=== PATIENT | female | born 1985 | race Caucasian/White ===

== ENCOUNTER 2025-04-28 12:01 | Emergency (ER) | payer OTHER, SELFPAY ==
--- OUTSIDE RECORDS SUMMARY | 2024-03-02 17:30 | XMS_ITS ---
Author Organization [facility] Address [address] [address] [place] [address] Care Team Providers Care Soft Metals Hand Engraver Name Role Phone zMigration, Provider Unavailable Unavailable REASON FOR VISIT Multum To Medispan Conversion Encounter Medications Medication SIG (Take, Route, Fr equency, Duration) Notes Start Date End Date Status Orilissa 150 MG Tablet 1 tab orally once a day Active Encounters Encounter Location Date Provider Diagnosis [facility] [address] [address] [place] [address] 03/02/2024 Provider zMigration Plan Of Treatment No Information Progress Notes * [place] CASTILLOB:1985 (40 yo F)Acc No.[id number]:03/02/2024 Patient: Dolores Mirandai Provider: :1985 A ge:38 Y S ex:Female Date:03/02/2024 Address:[address] [place], [place] [id number] Subjective: * Chief Complaints: * M ultum To Medispan Conversion Encounter * Medications: T akingOrilissa 150 MG Tablet 1 tab orally once a day Taking Orilissa 150 MG Tablet 1 tab orally once a day * Electronic signature of Prov ider zMigration on 04/28/2025 at 02:07 PM EDT Sign off status: Pending * Provider: Date: 0 03/02/2024 Generated for Robbin narayan/Donna/Selinaitting on: 04/28/2025 02:07 PM EDT
--- NOTE | ~2025-04-28 | XR_ITS ---
EXAMINATION: XR HAND 3 OR MORE VIEWS RIGHT HISTORY: pain, injury COMPARISON: There are no prior studies available for comparison. FINDINGS: Three views of the right hand are submitted. Osseous mineralization is normal. There is no fracture or dislocation. The joint spaces are preserved. The soft tissues are unremarkable. XR/XR hand RT min 3V IMPRESSION: Unremarkable examination of the right hand. Electronically signed by: Bennie Camacho MD 04/28/2025 12:35 PM EDT
[2025-04-28 12:08] VITALS: BP 115/74; PULSE 86; RESP 16; TEMP 36.6; O2SAT 97; BMI 19.6
--- NOTE | 2025-04-28 12:10 | ED_ITS ---
HPI - General Adult General Chief complaint: Extremity Injury, Upper Stated complaint: ? fx right index finger Time Seen by Provider: 04/28/25 12:44 Source: patient Mode of arrival: ambulatory Limitations: no limitations History of Present Illness ED Provider: Kadi Lopez PA-C HPI narrative: Patient is a 40 year old assigned female at with no reported medical history presenting to the emergency department today with a right index finger injury. Patient states that she was at work when she smashed her right index finger. Patient states that she is left handed. Patient states her last tetanus shot was 2022. Patient denies any other complaints at this time. Location: right (index finger) Relieving factors: none Exacerbating factors: none Associated symptoms: denies other symptoms Treatments prior to arrival: none Related Data Allergies Allergy/AdvReac Type Severity Reaction Status Date / Time Iodinated Contrast Media Allergy Hives Verified 04/28/25 12:10 (Contrast Dye) morphine Allergy Hives Verified 04/28/25 12:10 Review of Systems Constitutional: Constitutional: Reports as per HPI Eyes: Eyes: Reports as per HPI ENT: Reports as per HPI Cardiovascular: Cardiovascular: Reports as per HPI Respiratory: Respiratory: Reports as per HPI Gastrointestinal: Gastrointestinal: Reports as per HPI Genitourinary: Genitourinary: Reports as per HPI Musculoskeletal: Comments: right index finger pain Integumentary/Breasts: Skin/Breast: Reports as per HPI Neurologic: Reports as per HPI Psychiatric: Psychiatric: Reports as per HPI Endocrine: Endocrine: Reports as per HPI Hematologic/Lymphatic: Hematologic/Lymphatic: Reports as per HPI Allergic/Immunologic: Allergic/Immunologic: Reports as per HPI [facility] Past Medical History Attestation statement: The following information was validated with the patient. Source: old records reviewed and nursing notes reviewed Social History Social History Advance Directives: No Advance Directives Information Provided: No Do you have a plan to hurt others: No Plan Physical Exam ED Vital Signs: Vital Signs - 24 hr 04/28/25 12:08 04/28/25 12:56 Temperature 97.8 F 97.8 F Pulse Rate 86 86 Respiratory Rate 16 16 Blood Pressure 115/74 115/74 Pulse Oximetry 97 97 Oxygen Delivery Method Room Air BMI result Body Mass Index 19.6 Const General: cooperative, no acute distress, alert and awake Nutritional Appearance: well nourished Orientation/consciousness: patient oriented x3 HENMT Head: Yes normal to inspection and Yes atraumatic Ears: hearing grossly normal bilaterally and external ears normal General nose exam: Normal external nose present, no nasal discharge noted and no epistaxis Face and sinus: Yes normal facial exam, No abrasion and No laceration Mouth: Normal oral and palatal mucosa present, no drooling and no muffled voice Eyes General: appearance normal, both eyes and all related structures Periorbital: periorbital findings normal Eyelids: Yes eyelids normal Conjunctivae: conjunctivae normal Pupils: Equal, round and reactive pupils present EOM: EOMs intact bilaterally Neck Neck: Yes normal visual inspection and Yes full ROM Resp Effort & Inspection: normal respiratory effort and able to speak in complete sentences Neuro General: patient oriented x3, moves all extremities and CN's II-XI intact bilaterally Cranial nerves: Yes Equal, round and reactive pupils present Cognition (Neuro): normal cognition Extrem General: Yes normal to inspection, Yes full ROM and Yes capillary refill normal Psych Appearance: grossly normal Mental Status: mental status grossly normal Affect: normal affect Attitude: cooperative Thought process: Normal thought process present Thought content: Normal thought content present Insight: Good insight present (Psych) Course Course Course Narrative: Rapid medical examination performed in triage by Kadi Lopez PA-C. Patient is a 40 year old assigned female at presenting to the emergency department with a right index finger injury. Patient states she slammed her right index finger in a metal door. Last tetanus 2022. Detailed physical exam and review of systems are deferred to the job recruiter. Imaging ordered. Patient placed back in the waiting room pending room availability and results. Medical Decision Making Medical Decision Making MDM Narrative: Patient is a 40 year old assigned female at with no reported medical history presenting to the emergency department today with a right index finger injury. Patient's physical exam was unremarkable - no evidence of open / non- intact skin to the right index finger. PMS intact. Patient's right hand x-ray showed no acute process. I explained my physical exam findings as well as all test results to the patient. I answered all questions asked by the patient. I stressed the importance of the patient taking her medication as directed (either prescribed or as the over the counter packaging recommends). I stressed the importance of the patient following up with her primary care provider and given this was a work place injury - work connection. I stressed the importance of the patient returning to the emergency department immediately if her symptoms were to worsen or if she were to develop any numbness, tingling, inability to move her right index finger / hand, dizziness, shortness of breath, difficulty breathing, chest pain, blurry vision, loss of vision, nausea, vomiting, abdominal pain, fever, chills, back pain, or any other complaints. Patient verbalized agreement and understanding with this treatment plan and discharge. Differential Diagnosis Differential Diagnoses: The differential diagnosis associated with the presentation includes Right index finger fracture Right index finger contusion Right index finger pain Admission/Observation Consideration of admission/observation: Escalation of care including admission/observation considered Patient would have been admitted to the hospital had her work up had any findings where hospital admission was appropriate and her clinical presentation warranted hospital admission. Independent Interpretation I performed an independent interpretation of an: Plain X-Ray Interpretation: My interpretation is in agreement with the radiologist's impression of this imaging study. EXAMINATION: XR HAND 3 OR MORE VIEWS RIGHT HISTORY: pain, injury COMPARISON: There are no prior studies available for comparison. FINDINGS: Three views of the right hand are submitted. Osseous mineralization is normal. There is no fracture or dislocation. The joint spaces are preserved. The soft tissues are unremarkable. XR/XR hand RT min 3V IMPRESSION: Unremarkable examination of the right hand. Electronically signed by: Bennie Camacho MD 04/28/2025 12:35 PM EDT RP Dictated By: Bennie Camacho MD Signed By: Electronically signed by Bennie Camacho MD 04/28/25 3228 Radiology Impression Discussion of test interpretation with radiology: I have reviewed the radiologist's reading. Discharge Plan Discharge Clinical Impression: Contusion Patient Disposition: Home, Self-Care Instructions: Contusion in Adults (ED) Additional Instructions: Your x-ray showed no evidence of fracture / break. Given this was a work place injury - you should follow up with work connection. IF you are prescribed home medications and/or you are taking over the counter medications at home - it is very important you continue to do so as prescribed / directed unless told otherwise. Follow up with a primary care provider. Return to the emergency department immediately if your symptoms worsen or if you develop any numbness, tingling, dizziness, shortness of breath, difficulty breathing, chest pain, blurry vision, loss of vision, nausea, vomiting, abdominal pain, fever, chills, back pain, or any other complaints. If you do not have a primary care provider - call any of the below numbers to establish and follow up with a primary care provider. [facility] Primary Care ([place]) [phone] [place] [address], [address] [facility] Primary Care ([address] [place]) [phone] [place] [address], [address] [facility], [address] [facility] Primary Care ([address] [place]) [phone] [place] [address], [address] [facility], [address] [facility] Primary Care ([place]) [phone] [place] [address] [address] [facility], [address] [facility] Family Medicine [phone] [place] [address], [address] Please see the information below about our Patient Portal. If you are not yet enrolled in the [facility] Patient Portal, you will receive an enrollment email invitation following your visit to any [facility] setting. You may also self-enroll in the Patient Portal by visiting our website: [email or web address] The following information is required to access the Patient Portal: - Your [facility] Medical Record Number - Your personal home email address (must match what is in your electronic medical record, Registration staff can assist with this) - Name - Date of Capabilities of the Patient Portal: - Message some providers - View upcoming appointments - Access your health summary, medical history, and visit history - View current conditions and allergies - View procedure and lab results - View your medications, including guidelines, side effects, and precautions - Complete pre-appointment questionnaires requested by your provider - Ready summary reports of your office visits and procedures To access the Patient Portal Mobile [employer], follow these directions: - Search [employer] in the [employer] Store or [employer] Store - Download the Gino - Search for [facility] - Enter your login/password Referrals: Work Connection [Provider Group] Stand Alone Forms: Work/School Release Interventions: ED Discharge Assessment Last Done: 04/28/25 12:56 Discharge Date/Time: 04/28/25 12:56 Print Language: Luxembourgish
[2025-04-28 12:56] VITALS: BP 115/74; PULSE 86; RESP 16; TEMP 36.6; O2SAT 97
--- OUTSIDE RECORDS SUMMARY | 2025-04-28 14:07 | XMS_ITS | Patient Health Record ---
Author Organization [facility] Address [address] [address] [address] [place] [address] Care Team Providers Care Frame Repairer Name Role Phone Martha Perez Unavailable [phone] Allergies Allergen (clinical drug ingredient) Drug/Non Drug Allergy documented on EMR Reaction Allergy Type Onset Date Status morphine Morphine Sulfate hives Drug Allergy Active Reason For Referral No Information Medications Medication SIG (Take, Route, Fr equency, Duration) Notes Start Date End Date Status CeleXA 20 MG Tablet 1 tablet Orally Once a day Active Immunizations Vaccine Route Administration Date Status Comme nts Moderna COVID-19 Vaccine Unknown 04/05/2021 Administere d Social History Tobacco Use: Social History Observation Description Date Details (start date - stop date) Never Smoker NA - NA Social History Drugs/Alcohol: Social Info Question Answer Notes Alcohol Screen Did you have a drink containing alcohol in the past year? Yes How often did you have a drink containing alcohol in the past year? 2 to 3 times a week (3 points) Points 3 Interpretation Positive Tobacco Use: Social Info Question Answer Notes Tobacco Use/Smoking Are you a nonsmoker Plan Of Treatment Pending Test Test Name Order Date Ultrasound : Pelvic & Transvaginal 04/05 Insurance Providers Payer Name Payer Address Payer Phone Subscriber Number Group Number Insured Name Patient Relationship to Insured Coverage Start Date Coverage End Date [facility] Blue Card [address] [place], [place] [id number] [phone] [id number] Lydia Castillo Self - patient is the insured Medical (General) History Medical History History ICD Code Endometriosis cervical Cancer Ovarian cyst schistosomiasis hyperaldosteronism Surgical History Surgery Date(Month/Year) Ovarian cyst removal hysterectomy LEEP D&C Eptopic Gallbladder appendectomy
--- OUTSIDE RECORDS SUMMARY | 2025-04-28 14:07 | XMS_ITS ---
[facility] Name [facility] Results Test Name/Text Value Interpretation Date Range Source FREE T4 1.0 ng/dL Normal 09/16/2024 0.7 - 1.5 [facility] THYROID STIMULATING HORMONE 1.0 uIU/mL Normal 09/16/2024 0.35 - 4.94 [facility] WHITE BLOOD COUNT 5.1 k/mm3 Normal 09/16/2024 4 - 10 [facility] RED BLOOD COUNT 4.31 M/mm3 Normal 09/16/2024 3.9 - 5.1 [facility] MEAN CORPUSCULAR HEMOGLOBIN 32.3 pg Normal 09/16/2024 26.2 - 32.6 [facility] MEAN PLATELET VOLUME 10.8 fL Normal 09/16/2024 9 - 12.8 [facility] RED CELL DISTRIBUTION WIDTH 11.4 % Below low normal 09/16/2024 11.5 - 15.6 [facility] MEAN CORPUSCULAR VOLUME 95.1 fL Normal 09/16/2024 80 - 98 [facility] MEAN CORPUSCULAR HGB CONC 33.9 g/dL Normal 09/16/2024 32.1 - 34.5 [facility] HEMATOCRIT 41.0 % Normal 09/16/2024 35.7 - 43.7 [facility] NUCLEATED RED BLOOD CELL 0.0 K/mm3 Normal 09/16/2024 0 - 0.012 [facility] PLATELET COUNT 235.0 K/mm3 Normal 09/16/2024 130 - 385 [facility] NUCLEATED RED BLOOD CELL 0.0 % Normal 09/16/2024 0 - 0.2 [facility] HEMOGLOBIN 13.9 g/dL Normal 09/16/2024 12 - 14.8 [facility] ALBUMIN 4.8 g/dL Normal 09/16/2024 3.5 - 5 [facility] AST/SGOT 20.0 U/L Normal 09/16/2024 0 - 34 [facility] ALKALINE PHOSPHATASE 74.0 U/L Normal 09/16/2024 45 - 129 [facility] BUN/CREATININE RATIO 26.3 Normal 09/16/2024 [facility] CALCIUM 9.7 mg/dL Normal 09/16/2024 8.4 - 10.5 [facility] CARBON DIOXIDE (CO2) 24.0 mmol/L Normal 09/16/2024 20 - 3 1 [facility] CREATININE 0.8 mg/dL Normal 09/16/2024 0.5 - 1.3 [facility] ALBUMIN/GLOBULIN RATIO 1.8 Normal 09/16/2024 1 - 2. 2 [facility] GLUCOSE 81.0 mg/dL Normal 09/16/2024 65 - 100 [facility] ANION GAP 12.0 Above high normal 09/16/2024 3 - 11 [facility] BLOOD UREA NITROGEN 21.0 mg/dL Normal 09/16/2024 9 - 23 [facility] CHLORIDE 106.0 mmol/L Normal 09/16/2024 99 - 109 [facility] BILIRUBIN,TOTAL 0.8 mg/dL Normal 09/16/2024 0.2 - 1.2 [facility] POTASSIUM, SERUM 4.1 mmol/L Normal 09/16/2024 3.5 - 5.2 [facility] SODIUM 142.0 mmol/L Normal 09/16/2024 132 - 146 [facility] TOTAL PROTEIN 7.5 g/dL Normal 09/16/2024 6.4 - 8.3 [facility] M EST GLOMERULAR FILTRATION RATE > 60 Normal 09/16/2024 - [facility] ALT/SGPT 17.0 U/L Normal 09/16/2024 17 - 52 [facility] Encounters Encounter Type Encounter Reason Primary Diagnosis Location Date Emergency Contact with and (suspected) exposure to other hazardous substances Contact with and (suspected) exposure to other hazardous substances [facility] 02/07/[address] [facility] Ambulatory PALPITATIONS VENTRICULAR MARIO ALBERTO ATURE DEPOLARIZATION [facility] 10/24/2024 Ambulatory R00.2 / R55 / R07.9 CHEST PAIN, UNSPECIFIED [facility] 09/23/2024 Ambulatory R00.2 PALPITATIONS [facility]) 09/16/2024 Ambulatory Z01.419 Z11.51 ENCNTR FOR INSPECTOR PENETRANT E XAM (GENERAL) (ROUTINE) W/O ABN FINDINGS [facility]) 04/03/2023 Ambulatory E34.9 Z11.51 Z01.419 ENDOCRINE D ISORDER, UNSPECIFIED [facility]) 06/20/2022 Care Team Organization Name Specialty Phone Email Start Date End Da cl [facility] PCP Casting Inspector 02/07/2025 03/08/[address] [facility] 02/07/202503/08 [facility] NO PCP Primary Care 02/07/2025 [facility] 11/09/2024 [employer] [facility] 05/15/2024 [place] [employer] [facility] 01/02/2024 [facility]) PHYSICIAN,NO Primary Care 09/24/2023 02/04/2025 [facility]) KNOWN PROVIDER Primary Care 10/10/2022 02/05/20 [facility] 07/06/2022 [facility]) PHYSICIAN NO Primary Care 06/29/2022 02/04/2025 [facility]) NO PHYSICIAN Primary Care 06/20/2022 06/20/2022 [facility]) PROVIDER KNOWN Primary Care 03/16/2022 03/16/20 [employer] NO PCP Primary Care 06/20/2018 06/20/2018 [employer] [facility] Primary Care
--- OUTSIDE RECORDS SUMMARY | 2025-04-28 14:07 | XMS_ITS | Clinical Summary ---
Author Organization [facility] Address [address] [place] [address] Care Team Providers Care Auxiliary Power Equipment Operator Name Role Phone Pj Ash MD Unavailable [phone] Allergies Active Allergy Reactions Criticality Noted Date Comments Adhesives/Tape Other (See Comments) 06/18/2018 lyon Oxycodone-Acetaminop hen Nausea And Vomiting Low 02/18/2014 SEVERE NAUSEA + VOMITING SEVERE NAUSEA + VOMITING Medications losartan-hydrochl orothiazide (HYZAAR) 50-12.5 MG per tablet Take 1 tablet by mouth daily. Active diclofenac (VOLTAREN) 1 % gelIndications:St rain of left shoulder, subsequent encounter Apply topically 4 (four) times a day. Use dosing card to measure dose. Apply to entire affect area. 1 Tube 8 Active ibuprofen (MOTRIN) 800 mg tabletIndications :Strain of left shoulder, subsequent encounter,Strain of lumbar region, subsequent encounter Take 1 tablet (800 mg total) by mouth 4 times daily (every 6 hours) as needed for mild pain. 30 tablet 8 Active norethindrone (AYGESTIN) 5 MG tablet Take 5 mg by mouth daily. 0 Active albuterol (ProAir HFA) 108 (90 Base) MCG/ACT inhalerIndication s:Mild intermittent asthma without complication Inhale 1-2 puffs every 4 (four) hours as needed for wheezing. 1 Inhaler 3 0 Active BREO ELLIPTA 100-25 MCG/INH inhalerIndication s:Mild intermittent asthma without complication TAKE 1 PUFF BY MOUTH EVERY DAY 60 puff 0 Active OMEprazole (PriLOSEC) 20 MG capsuleIndication s:Pain of upper abdomen,Gastroeso phageal reflux disease without esophagitis Take 1 capsule (20 mg total) by mouth every morning before breakfast. 30 capsule 1 Active sodium-potassium- magnesium sulfates (Suprep Bowel Prep Kit) 17.5-3.13-1.6 GM/177ML Solution solutionIndicatio ns:Diarrhea, unspecified type As directed 177 mL 1 Active Sod Picosulfate-Mag Ox-Cit Acd 10-3.5-12 MG-GM -GM/160ML SolutionIndicatio ns:Diarrhea, unspecified type Take 2 Bottles by mouth once. Take 2 bottles as directed by provider, along with clear liquids. 2 Bottle 1 Active cholestyramine resin (QUESTRAN) 4 g packetIndications :Right upper quadrant abdominal pain,Diarrhea, unspecified type Take 1 packet (4 g total) by mouth 2 (two) times a day with meals. Add to liquid and stir until completely mixed. 60 packet 1 1 Active ALPRAZolam (XANAX) 0.25 MG tabletIndications :PTSD (post-traumatic stress disorder) TAKE ONE TABLET THREE TIMES DAILY (every EIGHT hours) as needed FOR anxiety 30 tablet 1 1 Active citalopram (CeleXA) 20 MG tabletIndications :PTSD (post-traumatic stress disorder) Take 0.5 tablets (10 mg total) by mouth daily. 90 tablet 1 Active ondansetron (ZOFRAN) 4 MG tabletIndications :Nausea Take 1 tablet (4 mg total) by mouth 3 times daily (every 8 hours) as needed for nausea or vomiting. 30 tablet 1 1 Active Active Problems Problem Noted Date Diagnosed Date Right upper quadrant abdominal pain 10/23/2020 Assessment & Plan (11/20/2020 3:33 PM EDT): Patient was in [facility] had an ultrasound there which revealed the possibility of a cyst related to the bile duct she continues to have pain at this point in time omeprazole does not seem to be helping her I will discontinue it she has been tried on Bentyl which makes her sleepy has not really given her much help. 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 Sound related to food. She did speak to the surgeon performed a cholecystectomy and delayed rehab center body dysfunction refer to [facility] no other evaluation. She does say the pain feels similar to her prior gallbladder pain she also takes a fair amount of nonsteroidal anti-inflammatory drugs at this time laboratory studies liver function tests lipase were done which were all normal we will proceed with an upper endoscopy depending upon the findings further imaging with either ultrasound to assess the size of the duct or an MRCP may be warranted. Diarrhea 10/23/2020 Assessment & Plan (11/20/2020 3:39 PM EDT): See under right upper quadrant abdominal pain diarrhea continues colonoscopy biopsies unremarkable for etiologic cause. We will start Questran for symptomatic treatment possible treatment of choleretic diarrhea will obtain stool for C&S and C&S O&P and Giardia were done Assessment & Plan (10/23/2020 3:03 PM EST): Patient has a history of diarrhea as her cholecystectomy however is continued for 3 years. The vast majority of postcholecystectomy diarrhea resolves within 3 to 4 months of the cholecystectomy. I have seen patients who have choleretic diarrhea often for years afterwards. At this point in time given the complaint of chronic diarrhea will schedule him for colonoscopy with stool aspirate and biopsies for further evaluation if this is all unremarkable then would consider treatment with Questran History of hysterectomy 10/09/2020 History of cholecystectomy 10/09/2020 Mild intermittent asthma without complication PTSD (post-traumatic stress disorder) 01/03/2020 Hypertension 12/20/2019 Endometriosis 10/23/2017 Benign essential hypertension 03/28/2011 Resolved Problems Problem Noted Date Diagnosed Date Resolved Date Infection due to 2019-nCoV 01/03/2020 0 11/16/2023 Immunizations Immunization Administration Dates Next Due Influenza (AFLURIA/FLUZONE) Inactivated/Split Quadrivalent with Preservative IM 06/18/2018(Deferred: Patient decision) Influenza, Unspecified 09/17/2019 Family History Medical History Relation Name Comments Asthma Mother Cancer Paternal Grandfather Lung cancer Paternal Grandmother Relation Name Status Comments Father Alive Mother Alive Paternal Grandfather Paternal Grandmother Social History Tobacco Use Types Packs/Day Years Used Date Smoking Tobacco: Never Smokeless Tobacco: Never Alcohol Use Standard Drinks/Week Comments Yes 0 (1 standard drink = 0.6 oz pur e alcohol) social AUDIT-C Answer Date Recorded Q1: How often do you have a drink containing alc ohol? 2-3 times a week 10/23/2020 Q2: How many drinks containi ng alcohol do you have on a typical day when you are drinking? Not asked 10/23/2020 Q3: How often do you have si x or more drinks on one occasion? 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 Not on file Not on file Last Filed Vital Signs Vital Sign Reading Time Taken Comments Blood Pressure 102/74 11/20/2020 3:10 PM EDT Pulse 66 10/23/2020 2:37 PM EST Temperature 36.8 C (98.2 F) 06/20/2018 7:18 PM EDT Respiratory Rate 20 10/09/2020 1:35 PM EST Oxygen Saturation 99% 10/09/2020 1:35 PM EST Inhaled Oxygen Concentration - - Weight 57.2 kg (126 lb) 11/20/2020 3:10 PM EDT Height 162.6 cm (5' 4 ) 06/20/2018 7:18 PM EDT Body Mass Index 21.63 06/20/2018 7:18 PM EDT Plan of Treatment Health Maintenance Due Date Last Done Comments Hepatitis C Virus Screening 1987 HIV Screening 2000 DTaP/Tdap/Td Vaccines (1 - Tdap) 2006 Hepatitis B Vaccines (1 of 3 - 19+ 3-dose series) 2006 Pneumococcal Vaccine: Pediat rosalinda (0-5 Years) and At-Risk Patients (6 to 49 Years) (1 of 2 - PCV) 2006 HPV Vaccines (1 - 3-dose SCDM series) 2014 Pap Smear (Ages 21-65) 11/02/2022 0 (Previously Completed) COVID-19 Vaccine ( - 2023- season) 2024, 09/01/2020 Influenza Vaccine 04/04/2025 09/10/2020, 09/17/2019 Insurance [facility] Care Teams Auxiliary Power Equipment Operator Relationship Specialty Start Date End Date Pj Ash MD [address] [address] [place] [address] Gastroenterology 05/15/24
--- OUTSIDE RECORDS SUMMARY | 2025-04-28 14:07 | XMS_ITS | Patient Health Record ---
Author Organization [facility], Address [address] [place] [address] Reason For Referral No Information Medications Medication SIG (Take, Route, Frequency, Duration) Notes Start Date End Date Status ProAir HFA 108 (90 Base) MCG/ACT 1 puff as needed Inhalation every 4 hrs; Duration: 30 days 12/17/2019 Active Plan Of Treatment No Information Insurance Providers Payer Name Payer Address Payer Phone Subscriber Number Group Number Insured Name Patient Relationship to Insured Coverage Start Date Coverage End Date [facility] [address] [place] [phone] [id number] REED GALDAMEZ Self - patient is the insured
--- OUTSIDE RECORDS SUMMARY | 2025-04-28 14:07 | XMS_ITS | Clinical Summary ---
Author Organization [facility] Address [address] [place] [address] Care Team Providers Care Supply Cataloguer Name Role Phone Pcp, No MD Primary Care Provider Unavailabl e Allergies Active Allergy Reactions Criticality Noted Date Comments Adhesive 07/17/2015 Oxycodone-Acetaminoph en Nausea And Vomiting Low 02/18/2014 SEVERE NAUSEA + VOMITING Medications losartan-hydroc hlorothiazide (HYZAAR) 50-12.5 mg per tablet Take by mouth daily. Active L norgest/e.estra diol-e.estrad (SEASONIQUE) 0.15 mg-30 mcg (84)/10 mcg (7) tablets,dose pack,3 month Take by mouth daily. 06/24/2016 Active ORILISSA 150 mg tablet take ONCE DAILY DIRECTED 4 06/07/2019 Active Social History Tobacco Use Types Packs/Day Years Used Date Smoking Tobacco: Never Smokeless Tobacco: Never Alcohol Use Standard Drinks/Week Comments No 0 (1 standard drink = 0.6 oz pur e alcohol) Comments Unknown Sex and Gender Information Value Date Recorded Sex Assigned at Not on file Legal Sex Female 11:53 AM EST Gender Identity Not on file Sexual Orientation Not on file Last Filed Vital Signs Vital Sign Reading Time Taken Comments Blood Pressure 122/79 06/13/2019 3:02 PM EDT Pulse 91 06/13/2019 3:02 PM EDT Temperature 36.7 C (98 F) 07/20/2018 10:18 PM EST Respiratory Rate 21 07/20/2018 10:18 PM EST Oxygen Saturation 97% 07/20/2018 10:18 PM EST Inhaled Oxygen Concentration - - Weight 60.8 kg (134 lb) 06/13/2019 3:02 PM EDT Height 162.6 cm (5' 4 ) 06/13/2019 3:02 PM EDT Body Mass Index 23 06/13/2019 3:02 PM EDT Plan of Treatment Health Maintenance Due Date Last Done Comments HIV Screening 1987 DTaP,Tdap,and Td Vaccines (1 - Tdap) 2005 Hepatitis B Vaccines (1 of 3 - 19+ 3-dose series) 2006 Pap Smear 2008 Cervical Cancer Screening 2017 HPV/Cotest 2017 COVID-19 Vaccine (1 - 2023-2 5 season) 2024 Influenza Vaccine (#1) 2025 0, 09/17/2019 Zoster Vaccines (1 of 2) 2037 HPV Vaccines Aged Out No longer eligi ble based on patient's age to complete this topic Hepatitis A Vaccines Aged Out No long er eligible based on patient's age to complete this topic MMR Vaccines Aged Out No longer eligi ble based on patient's age to complete this topic Meningococcal Vaccine Aged Out No arminda med eligible based on patient's age to complete this topic Pneumococcal Vaccine: Pediatrics (0 to 5 Years) and At-Risk Patients (6 to 49 Years) Aged Out No longer eligible b ased on patient's age to complete this topic Insurance MEDICAID [employer] Care Teams Supply Cataloguer Relationship Specialty Start Date End Date PcpNadege MD [address] [place] [address] PCP - General 11/01/17
--- OUTSIDE RECORDS SUMMARY | 2025-04-28 14:07 | XMS_ITS | Encounter Summary ---
Author Organization [facility] Address [address] [place] [address] Care Team Providers Care Director Safety Council Name Role Phone Pcp, Does Not Have A Primary Care Provider Unava ilable Encounter Details Date Type Department Care Team (Latest Contact Info) Description 02/14/2014 Transcribed Orders [address] [place] [address] Julio Maurice MD [address] [place] [id number] Deviated nasal septum (Primary Dx); Hypertrophy of nasal turbinates; Chronic ethmoidal sinusitis; Chronic maxillary sinusitis; Chronic frontal sinusitis; Chronic sphenoidal sinusitis; Chronic tonsillitis Social History Tobacco Use Types Packs/Day Years Used Date Smoking Tobacco: Never Assessed Comments Unknown Sex and Gender Information Value Date Recorded Sex Assigned at Not on file Legal Sex Female 6:17 AM EST Gender Identity Not on file Sexual Orientation Not on file documented as of this encounter Plan of Treatment Scheduled Orders Name Type Priority Associated Diagnoses Orde r Schedule Comprehensive metabolic panel Lab Routine Deviated nasal septum Hypertrophy of nasal turbinates Chronic ethmoidal sinusitis Chronic maxillary sinusitis Chronic frontal sinusitis Chronic sphenoidal sinusitis Chronic tonsillitis 1 Occurrences starting 02/14/2014 until 08/16/2014 documented as of this encounter Results * Electrolyte panel (02/14/2014 1:15 PM EDT) Sodium 139 136 - 145 mMol/L [facility] Potassium 4.2 3.5 - 5.1 mMol/L [facility] Chloride 104 95 - 115 mMol/L [facility] CO2 26 21 - 32 mMol/L [facility] Anion Gap 9.0 5 - 15 [facility] Blood specimen (specimen) 02/14/2014 1:15 PM EDT Narrative [facility] - 02/14/2014 2:53 PM EDT Perf by: [facility] , [address] [place] [address] (CLIA# [id number], [id number], [place] [id number]) us Julio Maurice MD FACS LAB BLOOD ORDERABLES Fi nal Result [address] [address] * PT/INR and PTT ( L Y) (02/14/2014 1:15 PM EDT) Prothrombin Time 10.4 10.0 - 12.6 seconds [facility] INR 1.0 0.9 - 1.1 [facility] Comment: Monitor coumadin with INR ONLY, not PT. THERAPEUTIC RANGE: 2.0 - 3.0 *Mechanical prosthetic valves and prevention of recurring M.I. refer to Therapeutic range of 2.5 - 3.5. PTT 24.8 22.0 - 31.0 seconds [facility] Comment:THERAPEUTIC RANGE: 4 6.8 - 71.5 seconds Blood specimen (specimen) 02/14/2014 1:15 PM EDT Narrative [facility] - 02/14/2014 1:34 PM EDT ORDER COMMENTS: Patient anticoagulant status:->No anticoagulants Perf by: [facility] , [address] [place] [address] (CLIA# [id number], [id number], [place] PFI:[id number]) us Julio Maurice MD FACS LAB BLOOD ORDERABLES Fi nal Result [facility] [address] [place] [address] * (ABNORMAL) CBC and differential (02/14/2014 1:15 PM EDT) WBC 13.2(H) 3.8 - 10.6 Thou/uL [facility] RBC 4.26 4.20 - 5.40 Mill/uL [facility] Hemoglobin 13.1 11.9 - 16.0 g/dL [facility] Hematocrit 39.1 36.0 - 48.0 % [facility] MCV 91.8 80.0 - 99.0 fL [facility] MCH 30.8 25.7 - 31.0 pg [facility] MCHC 33.5 32.0 - 36.0 g/dL [facility] Red Cell Distribution Width SD 42.5 35.1 - 46.3 fL [facility] RDW 12.7 11.3 - 14.5 % [facility] Platelets 267 140 - 446 Thou/uL [facility] MPV 10.9 9.8 - 12.3 fL [facility] Nucleated RBC (Automated) 0.0 0.0 - 0.2 [facility] Segs Relative 65.0 38.0 - 74.0 % [facility] Lymphocytes Relative 24.1 14.0 - 43.0 % [facility] Monocytes Manual 5.4 0.0 - 14.0 % [facility] Eosinophils Manual 4.5 0.0 - 6.0 % [facility] Basophils Manual 1.0 0.0 - 2.0 % [facility] Immature Granulocytes 0.2 0.0 - 2.0 % [facility] ANC (Abs Neutrophil Count) 8.61(H) 1.80 - 7.28 Thou/uL [facility] Blood specimen (specimen) ARM NEC / Unknown 02/14/2014 1:15 PM EDT Narrative [facility] - 02/14/2014 2:38 PM EDT Perf by: [facility] , [address] [place] [address] (CLIA# [id number], [id number], [place] PFI:[id number]) us Julio Maurice MD FACS LAB BLOOD ORDERABLES Fi nal Result [facility] [address] [place] [phone] documented in this encounter Visit Diagnoses Diagnosis Deviated nasal septum- Primary Hypertrophy of nasal turbinates Chronic ethmoidal sinusitis Chronic maxillary sinusitis Chronic frontal sinusitis Chronic sphenoidal sinusitis Chronic tonsillitis Deviated nasal septum Hypertrophy of nasal turbinates Chronic ethmoidal sinusitis Chronic maxillary sinusitis Chronic frontal sinusitis Chronic sphenoidal sinusitis Chronic tonsillitis documented in this encounter Care Teams Director Safety Council Relationship Specialty Start Date End Date Pcp, Does Not Have A PCP - General 11/09/17 11/10/17 documented as of this encounter
--- OUTSIDE RECORDS SUMMARY | 2025-04-28 14:08 | XMS_ITS | Patient Health Record ---
Author Organization [facility] Address [address] [place] [id number] Care Team Providers Care Processing Lead Name Role Phone Migration, Provider Unavailable Unavailable Reason For Referral No Information Medications Medication SIG (Take, Route, Frequency, Duration) Notes Start Date End Date Status Seasonique *Reorder from ltum for eRx and Interaction Alerts* 12/23/2011 Active CeleXA *Pick strength-f orm from [facility] for eRX* 12/23/2011 Active Social History Social History Additional Details Category Social Info Options Details Social History Migrated Social History Al cohol intake : , Smoking Status : Former smoker Pt smoked approx 5 cigaretted per day for 2 yrs and quit in 2009 Encounters Encounter Location Date Provider Diagnosis [facility] [address] [place] [phone] 05/05/2024 Provider Migration [facility] [address] [facility] [address] [address] [place] [phone] 05/04/2024 Provider Migration Plan Of Treatment No Information
--- OUTSIDE RECORDS SUMMARY | 2025-04-28 14:08 | XMS_ITS | Patient Health Record ---
Author Organization [facility] Address [address] [place] [id number] Care Team Providers Care Road Mender Name Role Phone Joseluis Schuler Unavailable [phone] Allergies No Known Allergies Reason For Referral No Information Medications Medication SIG (Take, Route, Frequency, Duration) Notes Start Date End Date Status Singulair 10 MG 1 ORAL QD; Duration: -3 04/27/2011 Active CeleXA 40 MG 1 ORAL QHS; Duration : -3 04/27/2011 Active Amoxicillin 500MG 1 ORAL TID; Duration : -3 *Pick strength-form from [facility] for eRX* 04/25/2012 Active Problems Problem Type SNOMED Code ICD Code Onset Dates Problem Status W/U Status Risk Notes Problem Harmful pattern of use of tobacco (disorder) (3047716365) Personal history of tobacco use, presenting hazards to health (V15.82) 04/27/2011 Active confirmed Problem Screening for alcoholism (V79.1) 05/13/2013 Active confirmed Plan Of Treatment No Information Insurance Providers Payer Name Payer Address Payer Phone Subscriber Number Group Number Insured Name Patient Relationship to Insured Coverage Start Date [facility]age End Date [facility] [address] [place], [place] [id number] Lydia Castillo Self - patient is the insured
--- OUTSIDE RECORDS SUMMARY | 2025-04-28 14:08 | XMS_ITS | Clinical Summary ---
Author Organization [facility] Address [address] [place] [address] Care Team Providers Care Insulation Professional Name Role Phone Unavailable Primary Care Provider Unavailabl e Allergies Active Allergy Reactions Criticality Noted Date Comments Morphine 07/02/2019 Medications Medication Sig Dispensed Refills Start Date End Date Status losartan 50 MG TABS 1 tablet, hydroCHLOROthiazide 12.5 MG CAPS 1 capsule Take 1 tablet by mouth daily. 0 Active Elagolix Sodium (ORILISSA) 150 MG TABS Take by mouth. 0 Active Social History Tobacco Use Types Packs/Day Years Used Date Smoking Tobacco: Former Smokeless Tobacco: Never Alcohol Use Standard Drinks/Week Comments Yes 0 (1 standard drink = 0.6 oz pur e alcohol) Sex and Gender Information Value Date Recorded Sex Assigned at Female 07/02/2019 10:21 AM EDT Gender Identity Not on file Sexual Orientation Not on file Last Filed Vital Signs Vital Sign Reading Time Taken Comments Blood Pressure 110/75 07/02/2019 12:47 PM EDT Pulse 97 07/02/2019 12:47 PM EDT Temperature 36.4 C (97.5 F) 07/02/2019 12:47 PM EDT Respiratory Rate 16 07/02/2019 12:47 PM EDT Oxygen Saturation 100% 07/02/2019 12:47 PM EDT Inhaled Oxygen Concentration - - Weight 58.5 kg (129 lb) 07/02/2019 9:43 AM EDT Height 162.6 cm (5' 4 ) 07/02/2019 9:43 AM EDT Body Mass Index 22.14 07/02/2019 9:43 AM EDT Plan of Treatment Health Maintenance Due Date Last Done Comments Hepatitis B Vaccines (1 of 3 - 3-dose series) 1987 Hepatitis C Screening 1987 COVID-19 Vaccine (#1) 1987 Depression Screening 1999 Preventative Health Evaluation 2005 DTap / Tdap / Td (1 - Tdap) 2006 Cervical Cancer Screening (P ap Smear) 2008 Influenza Vaccine (#1) 2025 Pneumococcal Vaccine Aged Out No long er eligible based on patient's age to complete this topic RSV Ped < 20 months Aged Out No longe r eligible based on patient's age to complete this topic Lydia Castillo Workers Comp Self [address] [place] [address]
--- OUTSIDE RECORDS SUMMARY | 2025-04-28 14:08 | XMS_ITS | Patient Health Record ---
Author Organization [email or web address] Address [address] [address] [place] [address] Care Team Providers Care Captain'S Assistant Name Role Phone Harini KASPER, Joseluis Primary Care Provider Unavailab Scotty Cormier Unavailable [phone] Bing Mcclellan MD Unavailable Unavailable Reason For Referral No Information Medications Medication SIG (Take, Route, Frequency, Duration) Notes Start Date End Date Status Seasonique Active CeleXA Active Dilaudid taking currently due to pain Active Problems Problem Type SNOMED Code ICD Code Onset Dates Problem Status W/U Status Risk Notes Problem Right upper quadrant pain (910175709) Abdominal pain, right upper quadrant (789.01) Active confirmed Plan Of Treatment No Information Insurance Providers Payer Name Payer Address Payer Phone Subscriber Number Group Number Insured Name Patient Relationship to Insured Coverage Start Date Coverage End Date [employer] [address] [place] [address] [id number] JAYDEN GALDAMEZ ARR Self - patient is the insured Medical (General) History Surgical History Surgery Date(Month/Year) LEEP T&A Sinusitis Appendectomy Left adrenal adenoma resection Right ovarian cystectomy Hospitalization History Reason Date(Month/Year) RUQ u/s - Right renal cyst 05/07/13 MRI thoracic spine - bulging annulus at T6/T7 with patent foramen and canal 05/08/13 [facility] - Normal EF - 48% 05/21/13 Schistosoma IgG neg, strongyloides IgG n eg 09/28/13 EGD - Small hiatal hernia, m ild NERD. Bxs neg for h pylori, sprue and Chamorro's 10/02/13 GES - normal 10/04/13 CT A/P - Constipation 10/10/14 CMP/TSH normal, lipase 45 10/10/14 CBC normal, ESR 13, vitamin B12 345
--- OUTSIDE RECORDS SUMMARY | 2025-04-28 14:08 | XMS_ITS | Clinical Summary ---
Author Organization [facility] Address [address] [place] [address] Care Team Providers Care Wood Web Weaving Machine Operator Name Role Phone Unavailable Primary Care Provider Unavailabl e Surgical History Surgery Date Site/Laterality Comments OTHER SURGICAL HISTORY PROCEDURE:partial ovarian OTHER SURGICAL HISTORY PROCEDURE:right ankle Medical History Medical History Date Comments Hypertension DX:Hypertension Endometriosis DX:Endometriosis Adenomyosis DX:Adenomyosis Social History Tobacco Use Types Packs/Day Years Used Date Smoking Tobacco: Former Smokeless Tobacco: Never Alcohol Use Standard Drinks/Week Comments Yes 0 (1 standard drink = 0.6 oz pur e alcohol) Comments Unknown Sex and Gender Information Value Date Recorded Sex Assigned at Not on file Legal Sex Female 6:53 AM EST Gender Identity Not on file Sexual Orientation Not on file Obstetrics History Plan of Treatment Health Maintenance Due Date Last Done Comments DTaP,Tdap,and Td Vaccines (1 - Tdap) 2006 Hepatitis B Vaccines (1 of 3 - 19+ 3-dose series) 2006 Cervical Cancer Screening: P ap Smear 2008 COVID-19 Vaccine ( - 2023-2 5 season) 2024 Depression Screening 09/04/2024 Influenza Vaccine (#1) 2025 HIB Vaccines Aged Out No longer eligi ble based on patient's age to complete this topic HPV Vaccines Aged Out No longer eligi ble based on patient's age to complete this topic Hepatitis A Vaccines Aged Out No long er eligible based on patient's age to complete this topic IPV Vaccines Aged Out No longer eligi ble based on patient's age to complete this topic MMR Vaccines Aged Out No longer eligi ble based on patient's age to complete this topic Meningococcal ACWY Vaccine Aged Out N o longer eligible based on patient's age to complete this topic Meningococcal B Vaccine Aged Out No l onger eligible based on patient's age to complete this topic Pneumococcal Vaccine: Pediat rics (0 to 5 Years) and At-Risk Patients (6 to 49 Years) Aged Out No longer eligible b ased on patient's age to complete this topic RSV Immunization Patients Un víctor 20 months Aged Out No longer eligible b ased on patient's age to complete this topic Varicella Vaccines Aged Out No longer eligible based on patient's age to complete this topic
--- OUTSIDE RECORDS SUMMARY | 2025-04-28 14:08 | XMS_ITS | Clinical Summary ---
Author Organization [facility] [address] [id number] Care Team Providers Care Dish Cloth Inspector Name Role Phone Pcp, No Primary Care Provider Unavailabl e Allergies Active Allergy Reactions Criticality Noted Date Comments Morphine Other Reaction(s): hives Medications citalopram 20 mg tablet , Orally 10/02/2024 Active Encounters Date Type Department Care Team Description 02/07/2025 7:35 AM EDT - 02/07/2025 8:28 AM EDT Emergency Emergency [address] [place] [id number] Exposure to hazardous substance (Primary Dx) Discharge Disposition: DISCHARGED TO HOME OR SELF CARE (ROUTINE DISCHARGE) 02/07/2025 Travel from Last 3 Months Social History Tobacco Use Types Packs/Day Years Used Date Smoking Tobacco: Never Assessed Comments Unknown Sex and Gender Information Value Date Recorded Sex Assigned at Not on file Legal Sex Female 6:52 PM EST Gender Identity Not on file Sexual Orientation Not on file Last Filed Vital Signs Vital Sign Reading Time Taken Comments Blood Pressure 140/101 02/07/2025 7:45 AM EDT Pulse 84 02/07/2025 7:45 AM EDT Temperature 36.9 C (98.4 F) 02/07/2025 7:45 AM EDT Respiratory Rate 19 02/07/2025 7:45 AM EDT Oxygen Saturation 97% 02/07/2025 7:45 AM EDT Inhaled Oxygen Concentration - - Weight 61.7 kg (136 lb) 02/07/2025 7:51 AM EDT Height 162.6 cm (5' 4 ) 02/07/2025 7:51 AM EDT Body Mass Index 23.34 02/07/2025 7:51 AM EDT Plan of Treatment Health Maintenance Due Date Last Done Comments HIV Screening 1987 Lipid Panel 1987 Varicella Vaccines (1 of 2 - 13+ 2-dose series) 2000 Hepatitis C Screening 2005 Hepatitis B Vaccines (1 of 3 - 19+ 3-dose series) 2006 Pneumococcal Vaccine: Pediatrics (0 to 5 Years) and At-Risk Patients (6 to 64 Years) (1 of 2 - PCV) 2006 Influenza Vaccine (#1) 2025 09/17/2019, 2013 Pap Smear 04/08/2026 04/08/2023, 03/06, 06/25/2022, Additional history exists Cervical Cancer Screening 04/03/2028 HPV/Cotest 04/03/2028 04/03/2023, 06/20/2022 Zoster Vaccines (1 of 2) 2037 HIB Vaccines Aged Out No longer eligi [...] on patient's age to complete this topic Procedures Procedure Name Priority Date/Time Associated Diagnosis Comments GYNECOLOGIC CYTOLOGY 04/08/2023 11:01 AM EDT HPV DNA PROBE, AMPLIFIED Routine 04/03/2023 12:00 AM EDT from Last 3 Months or Most Recently Relevant to Health Maintenance Results * GYNECOLOGIC CYTOLOGY (04/08/2023 11:01 AM EDT) Narrative 04/08/2023 11:01 AM EDT Ordered by an unspecified provider. [facility] Data [employer]version Provider LAB CYTOLOGY ORD ERABLES Final Result * HPV DNA probe, amplified (04/03/2023 12:00 AM EDT) HPV DNA NEGATIVE NEGATIVE 04/04/2023 4:22 PM EDT [facility] Comment: NEGATIVE FOR HIGH RISK HPV Bashir Mace MD, FCAP, Chair of Pathology and Laboratory Product Handler Sandra Fletcher MD, PhD, AP, Director of Cytopathology and Molecular Pathology This test was performed using the APTIMA HPV Assay and is approved by the Food and Drug Administration (FDA) for use on samples collected in [facility] (Thin Prep). 04/03/2023 04/03/2023 11: 14 PM EDT Tri Correa DO LAB MICROBIOLOGY - GENE RAL ORDERABLES Final Result [facility] from Last 3 Months or Most Recently Relevant to Health Maintenance Insurance [employer] Care Teams Dish Cloth Inspector Relationship Specialty Start Date End Date Pcp, No [address] [place] [address] PCP - General 02/07/25
== END 2025-04-28 12:56 | disposition home or self-care (01) ==
LOC: HO.ED 12:56
PROVIDERS: Emergency Provider Emergency Medicine
DX: S60.021A Contusion of right index finger without damage to nail, initial encounter (principal); M79.641 Pain in right hand; X58.XXXA Exposure to other specified factors, initial encounter; Y93.9 Activity, unspecified; Y92.9 Unspecified place or not applicable; Y99.8 Other external cause status
CPT/HCPCS: 73130; 99282; 99283

== ENCOUNTER → 2025-04-28 12:10 | Outpatient (BNV) | payer SELFPAY | PROVIDERS: Emergency Provider Emergency Medicine; Visit Provider Radiology Diagnostic Radiology | DX: S69.90XA Unspecified injury of unspecified wrist, hand and finger(s), initial encounter (principal) | CPT/HCPCS: 73130 ==